=== PATIENT | female | born 1975 | race Caucasian/White ===

== ENCOUNTER 2020-01-02 03:14 | Observation (INO) | payer MEDICAID, SELFPAY ==
[2020-01-02] VITALS (14 sets, daily range): BP systolic 105–149; BP diastolic 74–83; PULSE 69–86; RESP 12–20; TEMP 36.8–37.3; O2SAT 94–98; BMI 28.5
--- NOTE | 2020-01-02 03:21 | ED_ITS ---
HPI - Chest Pain General: Stated Complaint: direct admit/cp Time Seen by Provider: 01/02/20 03:20 Source: patient and EMS Mode of arrival: EMS Limitations: no limitations History of Present Illness: HPI narrative: 44-year-old female who is transferred here from [facility] for chest pain. She had an elevated troponin there was a accepted as a direct admit. Patient come to the ER to be cleared for coronavirus. She has no cough or fever. Patient's pain-free currently. States the pain started yesterday at 2 PM. MD complaint: chest pain Associated symptoms: Deny abdominal pain, dyspnea, fever(s), nausea or vomiting Review of Systems Const: Denies: fever(s), chills, body aches or change in appetite Eyes: Denies: blurry vision or eye discomfort ENMT: Denies: throat pain or dental pain Card: Reports: chest pain Resp: Denies: dyspnea GI: Denies: abdominal pain, nausea, vomiting or diarrhea : Denies: dysuria Musc: Denies: neck pain or back pain Skin/Breast: Denies: rash Neuro: Denies: headache(s) Psych: Denies: depression Adrian/Lymph: Denies: easy bruising All/Imm: Denies: urticaria Physical Exam Const: COMMON NORMALS: no acute distress, patient oriented x3 and healthy appearing HENMT: COMMON NORMALS: normocephalic and atraumatic HEAD & SCALP: normocephalic and atraumatic Eye: COMMON NORMALS: Equal, round and reactive pupils present and EOMs intact bilaterally PUPIL: Yes Equal, round and reactive pupils present Neck/C-Spine: COMMON NORMALS: full ROM and supple Chest: COMMONS NORMALS: normal inspection of the chest and normal palpation of entire chest wall Resp: COMMON NORMALS: normal respiratory effort, No retractions, No use of accessory muscles and clear to auscultation bilaterally AUSCULTATION: clear to auscultation bilaterally Cardio: COMMON NORMALS: regular rate, regular rhythm and No murmurs present (Cardio) RATE: regular rate RHYTHM: regular rhythm GI: COMMON NORMALS: Normal to inspection, nondistended, normoactive bowel sounds present, Soft to palpation, non-tender and no masses PALPATION: Yes Soft to palpation Extremity: COMMON NORMALS: normal to inspection and full ROM Neuro: COMMON NORMALS: patient oriented x3, moves all extremities and no focal motor deficits Psych: COMMON NORMALS: mental status grossly normal, Normal thought process present and cooperative THOUGHT PROCESS: Normal thought process present Skin: COMMON NORMALS: no rashes or lesions noted and no wounds GENERAL SKIN EXAM: no rashes or lesions noted MDM - Chest Pain MDM Narrative: Medical decision making narrative: Patient presents with chest pain was transferred from [facility] to be direct admitted. Patient comes to the ER to be cleared for coronavirus she has no symptoms. Patient chest pain- free and I spoke to hospitalist and will admit. Discharge Plan Discharge Patient Disposition: Admitted As Inpatient Clinical Impression: Chest pain Condition: Stable Coding Level of Care Code ED Stockroom Clerk for Jimi Young
--- NOTE | 2020-01-02 03:38 | ECG_ITS ---
[facility] ED Test Date: 2020-01-02 Pat Name: Flavia Basurto Department: Room: 101 Gender: Female Tongue Presser: IVANIA FUNEZ: 1975 Requested By: Belkis Plascencia Order Number: [id number] Reading MD: Onur Alonso M.D. Measurements Intervals Rena Lara Rate: 72 P: 39 AL: 188 QRS: 77 QRSD: 90 T: 57 QT: 404 QTc: 443 Interpretive Statements SINUS RHYTHM MODERATE T-WAVE ABNORMALITY, CONSIDER ANTERIOR ISCHEMIA [-0.1+ mV T WAVE IN V3/V4] No previous ECG available for comparison Electronically Signed On 01-02-2020 23:39:12 CDT by Onur Alonso M.D. [id number]
--- NOTE | 2020-01-02 03:41 | PM.HP ---
Providers/Chief Complaint Admitting Physician: Belkis Plascencia MD Chief Complaint: direct admit/cp History of Present Illness Flavia Basurto is a 44 year old female who got transferred from [facility] for evaluation of chest pain. Patient is stating she does marijuana on a regular basis, and on Wednesday used IV cocaine when she was at her friend's home with her . On Wednesday when she was outside walking with her started experiencing extreme lethargy and fatigue after 4 blocks. She immediately went home, at home she started noticing pressure-like sensation in her back and chest area, she felt extremely lethargic, short of breath, started experiencing emesis. She has had multiple episodes of emesis which changed her voice tonality, she did not notice any fever, palpitations, syncope. Her chest pain persisted until she was evaluated at [facility] where she received sublingual nitroglycerin which seemed to relieve her symptoms. She was transferred to our facility for further evaluation, at the time of my evaluation she is chest pain-free and was able to give above-mentioned details. She has normal hemodynamics. She follows up with her primary care physician for type 2 diabetes and [facility] for her Percocet. Diagnostics at the other facility revealed initial blood pressure was soft low 90s, she was given normal saline which improved her blood pressure, EKG did not reveal ischemic or infarctive changes however troponin change from 0.012.. 0.037.. 0.047, d-dimer 298 ng/mL, ESR 16, CRP 13.9, TSH 1.5 Urinalysis color yellow pH 7.0 Ketones negative Glucose 2+ Protein negative Leukocytes negative Nitrite negative, WBC 3-5 RBC 6-10 Scant bacteria Few squamous cell Lipase 57 Blood chemistry Glucose 326 BUN 9 Creatinine 0.6 Sodium 136 Potassium 4.2 Chloride 95 CO2 28 AST 24 ALT 22 Calcium 9.8 White count 1980% neutrophils Hemoglobin 13.9 Platelet 367 Drug screen positive for cocaine, THC, opioids She received Toradol 30 mg IV, ceftriaxone [address] chest scan revealed bilateral diffuse bronchitis with mediastinal adenopathy Chest x-ray did not reveal pneumonia Review of Systems Const: Reports: body aches, change in appetite, fatigue and malaise; Denies: fever(s) or chills Eyes: Denies: change in vision ENMT: Denies: throat pain Card: Reports: chest pain and dyspnea on exertion; Denies: palpitations, irregular heart rhythm, swelling of feet/ankles, syncope, pre-syncope or orthopnea Resp: Reports: dyspnea; Denies: productive cough or non-productive cough GI: Reports: nausea and vomiting; Denies: abdominal pain : Denies: flank pain Musc: Denies: neck pain Skin/Breast: Denies: rash Neuro: Reports: headache(s) Psych: Reports: anxiety and depression Endo: Denies: polyuria Adrian/Lymph: Denies: easy bruising All/Imm: Denies: urticaria Medications/Allergies Home Medications Medication Instructions Recorded Confirmed Last Taken Type amitriptyline 150 mg PO BEDTIME 01/02/20 01/02/20 12/31/19 22:00 History atorvastatin 10 mg PO BEDTIME 01/02/20 01/02/20 12/31/19 22:00 History baclofen 10 mg PO TID 01/02/20 01/02/20 12/31/19 22:00 History cyclobenzaprine 5 mg PO DAILY 01/02/20 01/02/20 12/31/19 08:00 History exenatide microspheres [Bydureon] 2 mg SUBCUT Q7D 01/02/20 01/02/20 12/27/19 08:00 History insulin aspart U-100 [Novolog 0 - 20 unit SUBCUT TID 01/02/20 01/02/20 12/31/19 17:00 History U-100 Insulin aspart] 18 units insulin glargine [Lantus U-100 80 unit SUBCUT DAILY 01/02/20 01/02/20 12/31/19 08:00 History Insulin] meloxicam [Mobic] 7.5 mg PO DAILY 01/02/20 01/02/20 12/31/19 08:00 History metformin 1,000 mg PO BID 01/02/20 01/02/20 12/31/19 17:00 History oxycodone-acetaminophen [Percocet] 1 tab PO QID PRN 01/02/20 01/02/20 01/01/20 22:00 History trazodone 150 mg PO BEDTIME 01/02/20 01/02/20 12/31/19 22:00 History Allergies Allergy/AdvReac Type Severity Reaction Status Date / Time No Known Allergies Allergy Verified 01/02/20 03:20 PFSH Acute PFSH: Medical History Bipolar 1 disorder Diabetes IVDU (intravenous drug user) Polysubstance abuse Tetrahydrocannabinol (THC) dependence Surgical History S/P cholecystectomy Family History Other Hypertension Denies family history of CAD (coronary artery disease) Family history of premature coronary artery disease Social History (Updated 01/02/20 @ 04:59 by Belkis Plascencia MD) Smoking and tobacco status: heavy tobacco smoker cigarettes [ Other cigarette details: 1 pack/day for last 30 years ] Alcohol intake: never Substance/Drug Use: current Substance/Drug use type: Marijuana and Crack/Cocaine Household members: spouse Housing: House Vitals/I&O/Wt Last Vital Signs Temp 98.8 F 01/02/20 03:37 Pulse 86 01/02/20 03:37 Resp 16 01/02/20 03:37 BP 136/80 01/02/20 03:37 Pulse Ox 98 01/02/20 03:37 Weight last 48 hrs Weight 85.275 kg Physical Exam Narrative: EXAM NARRATIVE: Head to toe examination Patient is lying comfortably in her bed without any active discomfort She is chest pain-free EOMI, PERRLA Poor dentition Multiple skin tattoos Facial skin flushed S1, S2, grade 2/6 systolic murmur right second intercostal space No sign of heart failure Abdomen soft nontender nondistended Neurologically nonfocal exam Skin does not show any sign ischemia gangrene ulcer Appropriate mood and affect He is wearing nail georgian, no radial radial delay Data Other Labs: Home medications NovoLog sliding scale Metformin 1 g twice daily BiPurin weekly shot Zoloft 100 mg twice daily Trileptal 600 mg twice daily Zyrtec 10 mg daily Lipitor 10 mg daily Amitriptyline 50 mg at night Trazodone 150 mg at night Mobic 7.5 mg in the a.m. Flexeril 5 mg 3 times daily Percocet 10/325 daily Baclofen 10 mg twice daily A&P Assessment and plan (1) Unstable angina: Status: Acute (2) Polysubstance abuse: Status: Acute (3) Hoarseness of voice: Status: Acute (4) Bronchitis: Status: Acute Additional A&P Information Unstable angina Multiple risk factors for coronary artery disease such as diabetes, age, smoker, polysubstance abuse, dyslipidemia Currently chest pain-free, I would obtain CTA chest and abdomen to rule out aortic dissection, however no radio radial delay noticed, work-up is positive for CRP and ESR which is very nonspecific, I did not hear any loud murmur, she is afebrile, low risk for endocarditis Her chest pain responded well to nitroglycerin dosage, EKG does not show ischemic or infarctive changes, I am not sure about the value of troponin done at [facility], would repeat fifth generation troponin series with EKG No contraindication for exercise stress test We will get Cardiolite stress test N.p.o. Echocardiography to rule out wall motion abnormality and screen for valvular vegetation, I would not give her any antibiotics for now she has received ceftriaxone at [facility]. Polysubstance Drug screen positive for cocaine methamphetamine and opioid Would use Ativan for PRN basis for agitation, may be a calcium maria del carmen if she starts having another episode of chest Hoarseness of voice CT chest done at [facility] consistent with bronchitis TSH normal, patient is attributing to change of voice to multiple episode of emesis Would use azithromycin for bronchitis Type 2 diabetes Moderate sliding scale, start consistent carb diet after stress test, continue long-acting insulin Bipolar I would hold amitriptyline Full code N.p.o. DVT prophylaxis Attestations Medical Necessity Statement*: Anticipating discharge from the hospital less than 48 hours currently need Cardiolite stress test to rule out coronary ischemia to be the cause of her chest pain Time Spent in Patient Care: (>than 50% of time spent in counselling and/or direct pt care on unit). 60mins Coding Level of Care Code Acute Rn Child for Jimi Fwdayday Diagnoses Unstable angina I20.0 Polysubstance abuse F19.10 Hoarseness of voice R49.0 Bronchitis J40
--- NOTE | 2020-01-02 04:16 | PC.NURSE ---
LOVENOX WASN'T GIVEN BECAUSE ED NURSE SAID THAT IT WAS GIVEN. THE MAR DOES NOT REFLECT THAT IT HAS BEEN GIVEN.
--- NOTE | 2020-01-02 04:33 | USCV_ITS ---
Sb Flavia Age: 44 Gender: F : 1975 Exam Date: 01/02/2020 06:33 Ordering Phys: Belkis Plascencia MD Technologist: Bridgette Mcwilliams [place] [facility] [place]: CHEST PAIN BP: 140 / 83 HR: 68 Rhythm: Sinus Technical Quality: Adequate MEASUREMENTS (Male / Female) Normal Values 2D ECHO LV Diastolic Diameter PLAX 3.9 cm 4.2 - 5.9 / 3.9 - 5.3 cm LV Systolic Diameter PLAX 2.6 cm LV Chamber Size 3.7 cm IVS Diastolic Thickness 0.9 cm 0.6 - 1.0 / 0.6 - 0.9 cm IVS Systolic Thickness 1.6 cm LVPW Diastolic Thickness 1.7 cm 0.6 - 1.0 / 0.6 - 0.9 cm LVPW Systolic Thickness 2.1 cm RV Chamber Size 2.9 cm LVOT Diameter 2.0 cm LV Ejection Fraction 2D Teich 63.3 % LV Ejection Fraction MOD 2C 67.6 % LV Ejection Fraction 2C AL 68.6 % LA Diameter 4.1 cm LA Width 3.3 cm LA Height 4.1 cm RA Width 2.1 cm RA Height 3.4 cm Aorta at Sinotubular Diameter 3.2 cm M-MODE LV Diastolic Diameter MM 4.9 cm 4.2 - 5.9 / 3.9 - 5.3 cm LV Systolic Diameter MM 3.3 cm LV Ejection Fraction MM Teich 61.3 % IVS Diastolic Thickness MM 1.0 cm 0.6 - 1.0 / 0.6 - 0.9 cm IVS Systolic Thickness MM 1.0 cm LVPW Diastolic Thickness MM 0.9 cm 0.6 - 1.0 / 0.6 - 0.9 cm LVPW Systolic Thickness MM 1.4 cm Aortic Annulus Diameter 2.7 cm LA Ao Ratio MM 1.5 MV E Point Septal Separation 1.0 cm DOPPLER AV Peak Velocity 178.0 cm/s LVOT Peak Velocity 100.0 cm/s AV Area Cont Eq vti 1.7 cm squared AV Area Cont Eq pk 1.8 cm squared MV Area PHT 3.9 cm squared Mitral E to A Ratio 1.4 MV E' Velocity 19.0 cm/s Mitral E to MV E' Ratio 4.8 Mitral E to LV E' Lateral Ratio 4.7 Mitral E to LV E' Septal Ratio 4.9 TR Peak Velocity 161.0 cm/s TR Peak Gradient 10.4 mmHg TV Peak E Velocity 77.0 cm/s Right Atrial Pressure 3.0 mmHg Pulmonary Artery Systolic Pressu 13.4 mmHg PV Peak Velocity 77.0 cm/s RV Acceleration Time 0.2 s RV Ejection Time 0.4 s RV AcT/ET 0.5 FINDINGS Left Ventricle Normal left ventricular size, systolic function and wall thickness, with no regional wall motion abnormalities. Left ventricular ejection fraction is estimated at 62%. Normal diastolic function. Right Ventricle Normal right ventricular size and systolic function. Right ventricular systolic pressure 13.4 mmHg. Right Atrium Normal right atrial size. Right atrial pressure estimated at 3 mm Hg. Left Atrium Normal left atrial size. Mitral Valve Structurally normal mitral valve. No mitral valve stenosis. No mitral valve regurgitation. Aortic Valve Aortic valve not well visualized. No aortic valve stenosis. No aortic valve regurgitation. Tricuspid Valve Structurally normal tricuspid valve. Trace tricuspid valve regurgitation. Pulmonic Valve Pulmonic valve not well visualized. Trace pulmonary valve regurgitation. Pericardium No pericardial effusion. Normal-sized inferior vena cava. Aorta Normal-sized aortic root. CONCLUSIONS 1. Normal left ventricular size, systolic function and wall thickness, with no regional wall motion abnormalities. Left ventricular ejection fraction is estimated at 62%. Normal diastolic function. 2. Normal right ventricular size and systolic function. 3. Normal pulmonary artery pressure. 4. No significant valvular abnormality. 5. No prior similar studies to compare. Trisha Diaz MD (Electronically Signed) Final Date: 02 January 2020 16:40 S
--- NOTE | 2020-01-02 04:42 | PC.NURSE ---
PT WAS A DIRECT ADMIT FROM [facility] THAT CAME THROUGH THE ED. PT HAS A SINUS RHYTHM. VS WNL. PT WAS ORIENTATED TO ROOM. PT C/O BACK PAIN 5/10, BUT STATES THAT THEY DIDN'T WANT ANYTHING THAT THIS IS THE NORMAL FOR THEM. WILL CONTINUE TO MONITOR.
--- NOTE | 2020-01-02 04:49 | CTR_ITS ---
PROCEDURE INFORMATION: Exam: CT Chest With Contrast Exam date and time: 01/02/2020 5:38 AM Age: 44 years old Clinical indication: Pain; Other: Back; Prior surgery; Surgery date: 6+ months; Surgery type: Gb; Additional info: Back pain TECHNIQUE: Imaging protocol: Computed tomography of the chest with intravenous contrast. COMPARISON: No relevant prior studies available. FINDINGS: Lungs: Subtle peripheral airspace disease within the right upper lobe likely atelectasis. Lungs are otherwise well aerated. Correlate. Pleural space: Unremarkable. No pneumothorax. No pleural effusion. Heart: No pericardial effusion Small amount of fluid within the superior pericardial recess. Mediastinal space: Soft tissues of the mediastinum appear unremarkable. Pulmonary arteries: No visualized embolism as characterized to the most proximal segmental level. Consider alternative form of imaging if indicated. Aorta: Unremarkable. No aortic aneurysm. Lymph nodes: Numerous axillary lymph nodes. Nonspecific. Largest of approximately 1.7 cm on the right. Nonspecific lymph nodes in the mediastinum largest in the region of the aortic pulmonary window of approximately 15 mm. Nonspecific. Consider follow-up. Bones/joints: Unremarkable. No acute fracture. Soft tissues: Soft tissues about the thorax normal. Other findings: No dissection. thoracic inlet is unremarkable. IMPRESSION: 1. No dissection. 2. Subtle peripheral airspace disease within the right upper lobe likely atelectasis. Lungs are otherwise well aerated. Correlate. PROCEDURE INFORMATION: Exam: CT Angiography Abdomen and Pelvis With Contrast Exam date and time: 01/02/2020 5:38 AM Age: 44 years old Clinical indication: Pain; Other: Back; Prior surgery; Surgery date: 6+ months; Surgery type: Gb; Additional info: Back pain TECHNIQUE: Imaging protocol: Computed tomographic angiography of the abdomen and pelvis with intravenous contrast material. 3D rendering: MIP and/or 3D reconstructed images were created by the technologist. Radiation optimization: All CT scans at this facility use at least one of these dose optimization techniques: automated exposure control; mA and/or kV adjustment per patient size (includes targeted exams where dose is matched to clinical indication); or iterative reconstruction. Contrast material: OMNI 350; Contrast volume: 95 ml; Contrast route: INTRAVENOUS (IV); COMPARISON: No relevant prior studies available. RADIATION DOSE METRICS: Total DLP (mGy-cm): 1769.95 FINDINGS: Aorta: No aortic aneurysm. No aortic dissection. Celiac trunk and mesenteric arteries: Celiac trunk, superior mesenteric artery, renal arteries, inferior mesenteric arteries, abdominal aorta and the iliac vessels are patent. No dissection. Renal arteries: No occlusion or significant stenosis. Right iliac arteries: No occlusion or significant stenosis. Left iliac arteries: No occlusion or significant stenosis. Liver: No mass. Gallbladder and bile ducts: Prior cholecystectomy. Pancreas: Unremarkable. No mass. No ductal dilation. Spleen: Unremarkable. No splenomegaly. Adrenals: Unremarkable. No mass. Kidneys and ureters: Unremarkable. No solid mass. No hydronephrosis. Stomach and bowel: Moderate amount stool within the large bowel. Appendix: Appendix normal. Intraperitoneal space: No free fluid within the pelvis or within the dependent portions of the peritoneum. Lymph nodes: Unremarkable. No enlarged lymph nodes. Bladder: Unremarkable. No mass. Reproductive: Unremarkable as visualized. Bones/joints: No acute fracture. No dislocation. Soft tissues: Unremarkable. Other findings: No acute intra-abdominal process. No inflammatory process. No obstruction. CT/CT angio chest abdomen IMPRESSION: No dissection. 1. No acute intra-abdominal process. No inflammatory process. No obstruction. 2. No free fluid within the pelvis or within the dependent portions of the peritoneum. 3. Appendix normal. Radiation Dose CTDIVOL = (mGy): DLP = 1769.95 (mGy-cm)
--- NOTE | 2020-01-02 04:51 | ECG_ITS ---
[facility] Test Date: 2020-01-02 Pat Name: Flavia Basurto Department: Room: 101 Gender: Female Leaf Stripper: : 1975 Requested By: Belkis Plascencia Order Number: [id number] Iman MD: Trisha Diaz M.D. Interpretive Statements NAME OF STUDY: LEXISCAN SESTAMIBI STRESS TEST INDICATION: Angina PROCEDURE: At the baseline, the blood pressure was 141/71 mmHg, oxygen saturation 92% with a heart rate of 71 bpm. The electrocardiogram showed normal sinus rhythm, normal axis. T wave inversion in anterior leads, consider anterior ischemia. The Lexiscan was infused over a period of 20 seconds. A total of 0.4 milligrams of Lexiscan was infused. The stress phase was continued for a total of 5 minutes. Heart rate at the end of the stress phase was 89 bpm, oxygen saturation 97% with a blood pressure 161/78 mmHg. The EKG at the peak infusion revealed no new ST-T wave changes. Sestamibi was injected 20 seconds after the Lexiscan infusion. Blood pressure at the end of the recovery phase was 167/74 mmHg, oxygen saturation 98% with a heart rate of 84 beats per minute. CONCLUSION: 1. No significant EKG changes with the LexiScan infusion. 2. No LexiScan induced chest pain or cardiac arrhythmia. 3. Normal blood pressure and heart rate response. 4. Sestamibi/sestamibi perfusion scan pending; see separate report. Electronically Signed On 01-03-2020 17:24:57 CDT by Trisha Diaz M.D. [id number]
--- NOTE | 2020-01-02 04:51 | NMCV_ITS ---
NM dwight perf SPECT r/s* [id number] Flavia Basurto Age: 44 Gender: F : 1975 Exam Date: 01/02/2020 04:51 Ordering Phys: Belkis Plascencia MD Technologist: MEENA Stapleton Exam Location: [facility] Indications: Chest pain STRESS TEST Please [facility] IMAGE PROTOCOL Rest/Stress 1 Lexiscan Day Radiopharmaceutical Dose (mCi) Administration Site Administered by Rest: Tc-99m 10.6 IV MEENA Stapleton Sestamibi Stress:Tc-99m 32.2 IV MEENA Stapleton Sestamibi Rest: 02-Jan-2020 60 Discovery 630 Stress: 02-Jan-2020 45 Discovery 630 0.4mg Lexiscan. Images obtained in supine and prone position. SPECT RESULTS Technical Quality: Good Raw Data Analysis: Breast attenuation, Subdiaphragmatic activity Image Corrections: No attenuation or motion correction applied Summed Stress Score: 1 Summed Rest Score: 0 Summed Difference Score: 1 PERFUSION FINDINGS Small size perfusion abnormality of mild severity of mid anterior and anterolateral schmidt on supine stress images with improved tracer uptake on prone stress images. This is suggestive of attenuation artifact. FUNCTIONAL RESULTS (calculated via Gated SPECT) Stress Image LV EF (%): 55 Stress EDV (mL):98 TID: 0.75 Stress ESV (mL):44 FUNCTIONAL FINDINGS: The left ventricle is normal in size. Transient Ischemia Dilatation of 0.75. There is normal left ventricular systolic function. The left ventricular ejection fraction is normal with a value of 55%. There is normal left ventricular wall thickening. Normal end diastolic and end-systolic volumes. IMPRESSIONS 1. Myocardial perfusion imaging is normal. Attenuation artifact noted on mid anterior and anterolateral schmidt. 2. Overall left ventricular systolic function is normal without regional wall motion abnormalities. 3. The left ventricular ejection fraction is normal with a value of 55%. 4. No coronary ischemia based on the study. Trisha Diaz MD (Electronically Signed) Final Date: 02 January 2020 16:34 S
--- NOTE | 2020-01-02 05:38 | ECG_ITS ---
[facility] ED Test Date: 2020-01-02 Pat Name: Flavia Basurto Department: Room: 101 Gender: Female Turbine Measurements Engineer: IVANIA FUNEZ: 1975 Requested By: Belkis Plascencia Order Number: [id number] Iman MD: Onur Alonso M.D. Measurements Intervals [place] Rate: 67 P: 38 ID: [id number] QRS: 89 QRSD: 94 T: 82 QT: 409 QTc: 432 Interpretive Statements SINUS RHYTHM NONSPECIFIC T-WAVE ABNORMALITY Compared to ECG 01/02/2020 04:24:28 Possible ischemia no longer present T-wave abnormality still present Electronically Signed On 01-03-2020 0:07:37 CDT by Onur Alonso M.D. [id number]
[2020-01-02 06:08] LABS: Basophils % 0.4 %; Eosinophils # 0.3 10^3/uL (0.0-0.8); Hemoglobin 12.8 g/dL (11.5-15.3); Lymphocytes # 3.3 10^3/uL (0.8-4.8); Lymphocytes % 29.1 %; Mean Corpuscular HGB Conc 31.2 g/dL (30.0-36.0); Mean Corpuscular Hemoglobin 28.1 pg (28.0-34.0); Mean Corpuscular Volume 90.1 fL (81-99); Mean Platelet Volume 9.3 fL (7.4-10.4); Monocytes # 0.5 10^3/uL (0.2-0.9); Monocytes % 4.5 %; Neutrophils % 62.7 %; Nucleated Red Blood Cells % 0 %; Platelet Count 326 10^3/cmm (130-400); Red Blood Count 4.55 10^6/uL (4.1-5.3); Red Cell Distribution Width 12.5 % (12.1-15.1); White Blood Count 11.2 10^3/uL (4.0-10.0)
[2020-01-02 06:16] LABS: Glucose Point of Care 175 mg/dL (70-110)
[2020-01-02 06:21] LABS: Troponin(5th) Baseline 12 ng/L (0-10)
[2020-01-02 06:29] LABS: Alanine Aminotransferase 17 U/L (0-33); Albumin Level 3.6 g/dL (3.5-5.2); Alkaline Phosphatase 74 IU/L (35-105); Aspartate Amino Transferase 15 U/L (0-32); Blood Urea Nitrogen 11 mg/dL (6-20); Carbon Dioxide 28 mmol/L (22-29); Chloride 99 mmol/L (98-107); Globulin 2.3 g/dL (1.3-4.6); Glomerular Filtration Rate 108.6 mL/min (90-130); Glucose 181 mg/dL (65-115); NT Pro B Type Natriuretic Pept 303 pg/mL (0-125); Osmolality Calculated 283 mOsm/kg (285-295); Sodium 136 mmol/L (136-145); Total Bilirubin 0.4 mg/dL (0.15-1.2); Total Protein 5.9 g/dL (6.6-8.7)
[2020-01-02 06:51] LABS: HCG, Serum Qual Negative (Negative)
--- NOTE | 2020-01-02 06:55 | PC.NURSE ---
PT HAS NO C/O PAIN AT THIS TIME. PT STATES THAT THEY ARE READY TO SLEEP THAT THEY HAVE BEEN TO CT AND LAB HAS BEEN IN AND NURSES. PT STATES THAT THEY FEEL THEY ARE REALLY BEING TAKEN CARE OF HERE. REPORT GIVEN TO ON COMING NURSE.
[2020-01-02 07:53] LABS: Troponin 5 2HR 10.21 ng/L (0-10)
--- NOTE | 2020-01-02 07:55 | PC.NURSE ---
Initial Rounding Pt is laying on her left side lateral position. She let me do nsg assessment then pt stated, she wants to sleep. I discuss to her about the plan today and if she understood regarding her NPO status and cardiac stress test orders. pt verbalizes understanding.
[2020-01-02 08:08] LABS: Troponin 5 2HR Delta -1.79 ABS# (0-10)
--- NOTE | 2020-01-02 08:09 | SUR.PREOP ---
HCG HCG FOR STRESS TESTING NEGATIVE. NM notified to proceed with test.
[2020-01-02] MEDS: baclofen 10 mg Tablet PO ×3 (09:26→21:49)
[2020-01-02 12:00] LABS: Glucose Point of Care 223 mg/dL (70-110)
[2020-01-02 12:40] LABS: Troponin 5 6HR 8.32 ng/L (0-10); Troponin 5 6HR Delta -3.68 ng/L (0-12)
--- NOTE | 2020-01-02 12:47 | PC.NURSE ---
off unit for stress test
--- NOTE | 2020-01-02 12:50 | PC.CHAP ---
Pastoral Care Encounter/Spiritual Assessment Type of Contact [x] Declined ice rink attendant visit [] Patient/Family/Request visit [] Outpatient visit [] Follow-up visit [] Physician referral [] Code/Alert [] Routine visit [] Staff referral [] Actively dying [] Patient sleeping [] Family support [] [] Out of room [] Palliative care [] [] Receiving care in room [] Pre-surgical visit [] Trauma [] Long length of stay [] ICU visit [] Other: Relational/Emotional Strength [] Patient feels connected with others/family/visitors/staff [] Distress [] Loneliness/isolation [] Abandonment Spirituality of Patient [] Person of [place] [] Attends Faith of their [place] [] Believes in Prayer [] Reads Bible or Jewish materials [] There are Spiritual issues to be addressed Manager Reading Interventions [] Prayer [] Active listening [] Non-anxious presence [] Spiritual/emotional support [] Crisis/trauma care [] Spiritual counseling [] Bereavement support [] Provided bereavement packet [] Provided Bible/devotional materials [] Provided toy/stuffed animal, coloring book to patient or family member [] Provided Communion [] Anointing/[place] [] Salvation [] Completed spiritual assessment [] Other: Impact on Illness or Injury [] Angry [] Fearful [] Anxious [] Often cries [] Exhaustion [] Unable to work [] Unable to attend druze [] Unable to walk/stand [] Unable to read [] Unable to drive [] Unable to eat/drink [] Unable to sleep [] Unable to be with family [] Patient intubated [] Other: Summary Declined ice rink attendant visit Time spent with patient 5 mins
--- NOTE | 2020-01-02 13:02 | SUR.PREOP ---
Patient reports no pain or discomfort prior to the start of the procedure.
[2020-01-02] MEDS: regadenoson 0.4 Mg/5 ml Syringe IVP (13:03)
--- NOTE | 2020-01-02 14:45 | PC.NURSE ---
Pt is back from Cardiac Stress test Dr. Potter notified for verification of pt's Lantus and Novolog. Pt was NPO all morning. Cardiac stress test is done and pt would like to eat now. She had 80 units of Lantus ordered in morning. Hold Lantus and Give scheduled novolog? Dr. vegas to hold Lantus and give novolog. pt can eat now.
[2020-01-02] MEDS: oxyCODONE-APAP 10-325 mg Tablet 1 TAB PO ×2 (14:56→21:56)
--- NOTE | 2020-01-02 15:47 | PM.PN ---
Subjective Subjective: Interval history: Chart reviewed, pending nuclear stress testing, Echo done but report pending. Resting quietly in bed, no complaints including chest pain. Medications: Reviewed: Yes Medication Review Details: Active Medications Generic Name Dose Route Start Last Admin Trade Name Freq PRN Reason Stop Dose Admin Aminophylline 25 mg 01/02/20 06:35 Aminophylline IVP 01/03/20 06:34 Q2M PRN see dose instruct ions Atorvastatin Calci um 10 mg 01/02/20 21:00 Lipitor PO BEDTIME EVANGELIST Baclofen 10 mg 01/02/20 09:00 01/02/20 14:57 Lioresal PO 10 mg TID EVANGELIST Administration Dextrose 25 ml 01/02/20 04:22 D50w IVP ONCE PRN hypoglycemia prot ocol Protocol Dextrose 50 ml 01/02/20 04:22 D50w IVP PRN PRN hypoglycemia prot ocol Protocol Enoxaparin Sodium 40 mg 01/02/20 03:45 01/02/20 04:19 Lovenox SUBCUT Not Given Q24H [facility] Glucagon 1 mg 01/02/20 04:22 Glucagen IM ONCE PRN Adult Acute Hypog lycemia Prot. Protocol Dextrose 500 mls @ 100 mls /hr 01/02/20 04:22 D5w IV ONCE PRN Adult Acute Hypog lycemia Prot Protocol Insulin Aspart 0 unit 01/02/20 08:00 01/02/20 14:55 Novolog SUBCUT 8 unit WM&BEDTIME EVANGELIST Administration Protocol Insulin Glargine 80 unit 01/02/20 09:00 01/02/20 14:49 Lantus SUBCUT Not Given DAILY [facility] Lorazepam 0.5 mg 01/02/20 03:38 Ativan IVP Q12H PRN ANXIETY Nitroglycerin 0.4 mg 01/02/20 03:38 Nitrostat SUBLINGUAL Q5M PRN CHEST PAIN Nitroglycerin 0.4 mg 01/02/20 06:35 Nitrostat SUBLINGUAL 01/03/20 06:34 Q5M PRN CHEST PAIN Ondansetron HCl 4 mg 01/02/20 06:35 Zofran IVP Q2M PRN NAUSEA Oxycodone/Acetamin ophen 1 tab 01/02/20 04:31 01/02/20 14:56 Percocet 10-325 Mg PO 1 tab Q8H PRN Administration Pain No Known Allergies Allergy (Verified 01/02/20 03:20) Vitals/I&O/Wt Last Vital Signs Temp 98.6 F 01/02/20 11:59 Pulse 73 01/02/20 13:29 Resp 20 H 01/02/20 14:56 BP 138/76 01/02/20 13:29 Pulse Ox 96 01/02/20 14:56 01/02/20 01/02/20 01/02/20 06:59 14:59 22:59 Intake Total 480 / 480 118 / 118 Balance 480 / 480 118 / 118 Weight last 48 hrs Weight 85.275 kg Physical Exam Const: COMMON NORMALS: no acute distress and patient oriented x3 GENERAL APPEARANCE: cooperative and comfortable ORIENTATION/CONSCIOUSNESS: Yes awake HENMT: COMMON NORMALS: normocephalic, atraumatic, hearing grossly normal bilaterally and moist oral mucous membranes HEAD & SCALP: normocephalic and atraumatic Eye: COMMON NORMALS: Equal, round and reactive pupils present, EOMs intact bilaterally and conjunctivae normal CONJUNCTIVA: Yes conjunctivae normal PUPIL: Yes Equal, round and reactive pupils present Neck/C-Spine: COMMON NORMALS: full ROM GENERAL: Yes normal visual inspection and Yes trachea midline Resp: COMMON NORMALS: normal respiratory effort, No retractions, No use of accessory muscles and clear to auscultation bilaterally EFFORT & INSPECTION: Yes able to speak in complete sentences, Yes symmetric chest movement and No tachypneic AUSCULTATION: clear to auscultation bilaterally Cardio: COMMON NORMALS: regular rate, regular rhythm, S1 normal heart sound present, S2 normal heart sound present and No murmurs present (Cardio) RATE: regular rate RHYTHM: regular rhythm HEART SOUNDS: S1 normal heart sound present and S2 normal heart sound present GI: COMMON NORMALS: Normal to inspection, nondistended, normoactive bowel sounds present, Soft to palpation and non-tender PALPATION: Yes Soft to palpation Extremity: COMMON NORMALS: normal to inspection, full ROM and no clubbing, cyanosis or edema; negative for no pedal edema Neuro: COMMON NORMALS: patient oriented x3, moves all extremities, no focal motor deficits, no sensory deficits noted and gait normal Psych: COMMON NORMALS: mental status grossly normal, Normal thought process present, cooperative, normal affect and speech normal SPEECH: Yes normal speech THOUGHT PROCESS: Normal thought process present Skin: COMMON NORMALS: no rashes or lesions noted, no jaundice, no petechiae and no mottling GENERAL SKIN EXAM: no rashes or lesions noted Data : 01/02/20 05:55 01/02/20 05:55 A&P Assessment and plan (1) Chest pain: -need to r/o ACS due to risk factors including DM, substance abuse, smoker, hyperlipidemia -no significant delta with serial troponins -nuclear stress testing today -Echo: EF=62%, no RWMA, trace TR, trace DC -imaging negative including CT C/A -PASTORA -continue statin Status: Acute Qualifiers: Chest pain type: unspecified Qualified Code(s): R07.9 - Chest pain, unspecified (2) Polysubstance abuse: -UDS positive for cocaine, THC, opiates -Ativan PRN Status: Chronic (3) Bipolar 1 disorder: Status: Chronic (4) Diabetes: -IDDM type II -consistent carb diet -ISS, hypoglycemia precautions, Accucheks, scheduled Lantus Status: Chronic Qualifiers: Diabetes mellitus complication status: without complication Diabetes mellitus assisted insulin use: with assisted use Diabetes mellitus type: type 2 Qualified Code(s): E11.9 - Type 2 diabetes mellitus without complications; Z79.4 - retirement (current) use of insulin (5) Dyslipidemia: -on statin Status: Chronic Additional A&P Information -cardiac consistent carb diet as tolerated -DVT ppx with Lovenox -Dispo: home -Code status: FULL code Attestations Medical Necessity Statement*: Patient requires hospitalization for continued rule out ACS workup including Echo, nuclear stress testing results. Time Spent in Patient Care: Greater than 35 minutes (>than 50% of time spent in counselling and/or direct pt care on unit). Coding Level of Care Code Acute Manager Statistical Programming for g Fwd Exam Comprehensive Diagnoses Chest pain R07.9 Chest pain type: unspecified Polysubstance abuse F19.10 Bipolar 1 disorder F31.9 Diabetes E11.9; Z79.4 Diabetes mellitus complication status: without complication Diabetes mellitus assisted insulin use: with assisted use Diabetes mellitus type: type 2 Dyslipidemia E78.5
[2020-01-02 17:02] LABS: Glucose Point of Care 218 mg/dL (70-110)
--- NOTE | 2020-01-02 19:28 | PC.NURSE ---
Patient is alert and oriented x4 and ambulatory. Patient states that she has a little bit of lower back pain. Patient was offered pain medication and stated that she wanted to wait until closer to bed time. Patient has call light within reach. Will continue to monitor.
--- NOTE | 2020-01-02 20:24 | PC.NURSE ---
Dr. Plascencia notified of patient asking for her home dose of Trazodone.
[2020-01-02 20:29] LABS: Glucose Point of Care 215 mg/dL (70-110)
[2020-01-02] MEDS: atorvastatin 40 mg Tablet 10 MG PO (21:48)
[2020-01-02] MEDS: diphenhydrAMINE 25 mg Capsule PO (21:48)
--- NOTE | 2020-01-02 22:57 | PC.NURSE ---
Patient is currently resting with eyes closed.
[2020-01-03 03:12] VITALS: BP 141/79; PULSE 67; RESP 16; TEMP 37; O2SAT 95
[2020-01-03 04:13] LABS: Chol HDL Ratio 7.69 mg/dL (0.0-4.40); Cholesterol 246 mg/dL (0-200); HDL Cholesterol 32 mg/dL (60-100); LDL Cholesterol Calculated 162 mg/dL (50-129); LDL HDL Ratio 5.06 RATIO (0.00-3.22); Triglycerides 261 mg/dL (0-150)
--- NOTE | 2020-01-03 04:19 | PC.NURSE ---
Dr. Plascencia notified of patient asking for Tylenol for leg pain.
[2020-01-03 04:24] LABS: Thyroid Stimulating Hormone 1.95 uIU/mL (0.27-4.20)
[2020-01-03 05:10] VITALS: RESP 20
[2020-01-03] MEDS: oxyCODONE-APAP 10-325 mg Tablet 1 TAB PO (05:10)
[2020-01-03] MEDS: acetaminophen 325 mg Tablet 650 MG PO (05:11)
[2020-01-03 05:29] LABS: Estmated Average Glucose 260; Hemoglobin A1C 10.7 % (4.0-6.0)
[2020-01-03 06:19] LABS: Glucose Point of Care 230 mg/dL (70-110)
[2020-01-03 07:34] VITALS: BP 126/96; PULSE 85; RESP 18; TEMP 36.7; O2SAT 96
--- NOTE | 2020-01-03 07:41 | P.DS_ITS ---
Discharge Providers Date of Admission: 01/02/20 03:21 Date of Discharge: January 03, 2020 Attending Provider at Admission: Belkis Plascencia MD Attending Provider at Discharge: Cassandra Potter MD Diagnoses at Discharge Discharge Diagnosis (1) Chest pain: Status: Acute Problem details: -need to r/o ACS due to risk factors including DM, substance abuse, smoker, hyperlipidemia -no significant delta with serial troponins -nuclear stress testing negative -Echo: EF=62%, no RWMA, trace TR, trace IA -imaging negative including CT C/A -PASTORA -continue statin at increased dose based on lipid panel Qualifiers: Chest pain type: unspecified Qualified Code(s): R07.9 - Chest pain, unspecified (2) Polysubstance abuse: Status: Chronic Problem details: -UDS positive for cocaine, THC, opiates -Ativan PRN (3) Bipolar 1 disorder: Status: Chronic (4) Diabetes: Status: Chronic Problem details: -IDDM type II; A1c-10.7 -consistent carb diet -ISS, hypoglycemia precautions, Accucheks, scheduled Lantus Qualifiers: Diabetes mellitus type: type 2 Diabetes mellitus termite control technician insulin use: with termite control technician use Diabetes mellitus complication status: without complication Qualified Code(s): E11.9 - Type 2 diabetes mellitus without complications; Z79.4 - termite control technician (current) use of insulin (5) Dyslipidemia: Status: Chronic Problem details: -on statin Reason for Visit Reason for Visit: chest pain Hospital Course Hospital Course: Patient was admitted to our facility having been transferred from [facility] where she had presented with complaints of chest pain. Due to noted risk factors including poorly controlled diabetes, substance abuse and dyslipidemia stress testing was ordered. Nuclear stress test is negative for any significant coronary ischemia and troponins were trended with no noted significant delta. Risk stratification was done including lipid panel check, TSH and A1c. A1c reflects uncontrolled diabetes and patient is already insulin- dependent. TSH is within normal limits and lipid panel confirms dyslipidemia. Atorvastatin dose has been increased for this reason. She has been chest pain- free throughout her hospital stay, hemodynamically stable, afebrile, ambulatory, tolerating oral intake without difficulty. Echo was done as well and she was noted to have an ejection fraction of 62% with normal diastolic function and no regional wall motion abnormalities. She will need to follow-up with her primary care provider within 1 week. She is counseled on need to seek medical attention immediately should she have recurrent symptoms. Patient had been started on azithromycin secondary to suspicion for bronchitis. I would not continue this as she is clinically stable, has not required oxygen, has no respiratory symptoms concerning for bronchitis at this time. Discharge Summary: -Patient to follow-up with her primary care provider within 1 week. Physical Exam Const: COMMON NORMALS: no acute distress and patient oriented x3 GENERAL APPEARANCE: cooperative and comfortable ORIENTATION/CONSCIOUSNESS: Yes awake HENMT: COMMON NORMALS: normocephalic, atraumatic, hearing grossly normal bilaterally and moist oral mucous membranes HEAD & SCALP: normocephalic and atraumatic Eye: COMMON NORMALS: Equal, round and reactive pupils present, EOMs intact bilaterally and conjunctivae normal CONJUNCTIVA: Yes conjunctivae normal PUPIL: Yes Equal, round and reactive pupils present Neck/C-Spine: COMMON NORMALS: full ROM GENERAL: Yes normal visual inspection and Yes trachea midline Resp: COMMON NORMALS: normal respiratory effort, No retractions, No use of accessory muscles and clear to auscultation bilaterally EFFORT & INSPECTION: Yes able to speak in complete sentences, Yes symmetric chest movement and No tachypneic AUSCULTATION: clear to auscultation bilaterally Cardio: COMMON NORMALS: regular rate, regular rhythm, S1 normal heart sound present, S2 normal heart sound present and No murmurs present (Cardio) RATE: regular rate RHYTHM: regular rhythm HEART SOUNDS: S1 normal heart sound present and S2 normal heart sound present GI: COMMON NORMALS: Normal to inspection, nondistended, normoactive bowel sounds present, Soft to palpation and non-tender PALPATION: Yes Soft to palpation Extremity: COMMON NORMALS: normal to inspection, full ROM and no clubbing, cyanosis or edema; negative for no pedal edema Neuro: COMMON NORMALS: patient oriented x3, moves all extremities, no focal motor deficits, no sensory deficits noted and gait normal Psych: COMMON NORMALS: mental status grossly normal, Normal thought process present, cooperative, normal affect and speech normal SPEECH: Yes normal speech THOUGHT PROCESS: Normal thought process present Skin: COMMON NORMALS: no rashes or lesions noted, no jaundice, no petechiae and no mottling GENERAL SKIN EXAM: no rashes or lesions noted Discharge Data Data Completed and Pending: Completed Studies During Hospitalization Category Date Time Status CT angio chest ab domen Stat Cat Scan 06/23/20 04:49 Completed Sestamibi Stress Test Request Routi ne Exams 01/02/20 04:51 Draft NM dwight perf SPECT r/s* [id number] Routin e Nuc Med 01/02/20 04:51 Completed CV echo complete* [id number] Routine Ultrasound 01/02/20 04:33 Completed Pending at discharge Category Date Time Status Sestamibi Stress Test Request Routi ne Exams 01/02/20 07:51 Ordered Sestamibi Stress Test Request Routi ne Exams 01/03/20 06:00 Stop Req Labs from last 24 hours 01/03/20 01/03/20 01/03/20 06:04 03:15 03:15 POC Glucose 230 Estimat Average Gl ucose 260 Hemoglobin A1c 10.7 H Troponin I 6 Hour Troponin I Hi Sens Del Troponin T 120 Min merlene Delta Troponin T Triglycerides 261 H Cholesterol 246 H LDL Cholesterol, C alc 162 H HDL Cholesterol 32 L LDL/HDL Ratio 5.06 H Cholesterol/HDL Ra poppy 7.69 H TSH 01/03/20 01/02/20 01/02/20 03:15 20:24 16:55 POC Glucose 215 218 Estimat Average Gl ucose Hemoglobin A1c Troponin I 6 Hour Troponin I Hi Sens Del Troponin T 120 Min merlene Delta Troponin T Triglycerides Cholesterol LDL Cholesterol, C alc HDL Cholesterol LDL/HDL Ratio Cholesterol/HDL Ra poppy TSH 1.95 01/02/20 01/02/20 01/02/20 12:11 11:27 07:32 POC Glucose 223 Estimat Average Gl ucose Hemoglobin A1c Troponin I 6 Hour 8.32 Troponin I Hi Sens Del -3.68 L Troponin T 120 Min merlene 10.21 H Delta Troponin T -1.79 L Triglycerides Cholesterol LDL Cholesterol, C alc HDL Cholesterol LDL/HDL Ratio Cholesterol/HDL Ra poppy TSH Vitals: Last Vital Signs Temp 98.1 F 01/03/20 07:34 Pulse 85 01/03/20 07:34 Resp 18 01/03/20 07:34 BP 126/96 01/03/20 07:34 Pulse Ox 96 01/03/20 07:34 Discharge Plan Discharge Patient Disposition: Home, Self-Care Condition: Stable Prescriptions: New atorvastatin 40 mg tablet 40 mg PO BEDTIME 30 Days Qty: 30 RF: 0 Continued metformin 500 mg Tablet 1,000 mg PO BID RF: 0 Lantus U-100 Insulin 100 unit/mL Solution 80 unit SUBCUT DAILY RF: 0 amitriptyline 150 mg Tablet 150 mg PO BEDTIME RF: 0 Mobic 7.5 mg Tablet 7.5 mg PO DAILY RF: 0 Percocet 10-325 mg Tablet 1 tab PO QID PRN (Reason: Pain) RF: 0 baclofen 10 mg Tablet 10 mg PO TID RF: 0 Novolog U-100 Insulin aspart 100 unit/mL Solution 0 - 20 unit SUBCUT TID RF: 0 trazodone 150 mg Tablet 150 mg PO BEDTIME RF: 0 cyclobenzaprine 5 mg Tablet 5 mg PO DAILY RF: 0 Bydureon 2 mg/0.65 mL Pen Injector 2 mg SUBCUT Q7D RF: 0 Discontinued atorvastatin 10 mg Tablet 10 mg PO BEDTIME RF: 0 Discharge Orders: Discharge Order (Routine); Ordered 01/03/20 Ordered By: Cassandra Potter Referrals: Mateo Swann MD [Referring] - 4-7 days (Post hospital discharge follow up. ) Discharge Diet: Cardiac and Diabetic Discharge Activity: Increase activity as tolerated Discharge Attestations Time Spent in Discharge Care*: greater than 30 min Specific Discharge Activities: Specific discharge activities: educating patient, documenting/other paperwork and evaluating patient/reviewing data Status at Discharge: Cognitive status at discharge: cognitively intact , Behavioral status at discharge: cooperative , Functional status at discharge: independent ambulation Overall status at discharge: patient is back to baseline Quality Metrics Clinical Quality Measures During this hospital stay, did patient experience: None Coding Level of Care Code Acute Controlled Area Checker for [facility] Fwd Diagnoses Chest pain R07.9 Chest pain type: unspecified Polysubstance abuse F19.10 Bipolar 1 disorder F31.9 Diabetes E11.9; Z79.4 Diabetes mellitus type: type 2 Diabetes mellitus termite control technician insulin use: with retirement use Diabetes mellitus complication status: without complication Dyslipidemia E78.5
[2020-01-03 07:54] VITALS: BP 126/96; PULSE 85; RESP 18; TEMP 36.7; O2SAT 96
[2020-01-03] MEDS: baclofen 10 mg Tablet PO (08:12)
[2020-01-03] MEDS: insulin glargine 100 units/1 mL 80 UNIT SUBCUT (08:13)
--- NOTE | 2020-01-03 09:44 | PC.CHAP ---
Pastoral Care Encounter/Spiritual Assessment Type of Contact [] Declined registered sales assistant visit [] Patient/Family/Request visit [] Outpatient visit [] Follow-up visit [] Physician referral [] Code/Alert [x] Routine visit [] Staff referral [] Actively dying [] Patient sleeping [] Family support [] [] Out of room [] Palliative care [] [] Receiving care in room [] Pre-surgical visit [] Trauma [] Long length of stay [] ICU visit [] Other: Relational/Emotional Strength [] Patient feels connected with others/family/visitors/staff [] Distress [] Loneliness/isolation [] Abandonment Spirituality of Patient [] Person of [place] [] Attends Nondenominational of their [place] [] Believes in Prayer [] Reads Bible or Protestant materials [] There are Spiritual issues to be addressed Public Speaker Interventions [x] Prayer [x] Active listening [x] Non-anxious presence [x] Spiritual/emotional support [] Crisis/trauma care [] Spiritual counseling [] Bereavement support [] Provided bereavement packet [] Provided Bible/devotional materials [] Provided toy/stuffed animal, coloring book to patient or family member [] Provided Communion [] Anointing/[place] [] Salvation [x] Completed spiritual assessment [] Other: Impact on Illness or Injury [] Angry [] Fearful [] Anxious [] Often cries [] Exhaustion [] Unable to work [] Unable to attend adventism [] Unable to walk/stand [] Unable to read [] Unable to drive [] Unable to eat/drink [] Unable to sleep [] Unable to be with family [] Patient intubated [] Other: Summary Ptient resting well, feeling stronger. Time spent with patient 10 min
--- NOTE | 2020-01-03 10:20 | PC.NURSE ---
discharge instructions explained to patient, all questions answered appropriately.
--- NOTE | 2020-01-03 15:22 | PC.RESP ---
Smoking Cessation information and a schedule of classes sent to patient.
== END 2020-01-03 10:21 | disposition home or self-care (01) ==
LOC: ER 03:28 → CSU 03:38
PROVIDERS: Admitting Provider Internal Medicine; Emergency Provider Internal Medicine; PCP Internal Medicine; Visit Provider Family Medicine
DX: I20.0 Unstable angina (principal); R49.0 Dysphonia; J40 Bronchitis, not specified as acute or chronic; R07.9 Chest pain, unspecified; F31.9 Bipolar disorder, unspecified; E11.9 Type 2 diabetes mellitus without complications; Z79.4 Long term (current) use of insulin; E78.5 Hyperlipidemia, unspecified; F12.90 Cannabis use, unspecified, uncomplicated; F15.10 Other stimulant abuse, uncomplicated; F14.10 Cocaine abuse, uncomplicated; F17.210 Nicotine dependence, cigarettes, uncomplicated; Z79.84 Long term (current) use of oral hypoglycemic drugs
CPT/HCPCS: 12345; 36415; 36416; 71275; 74175; 78452; 80053; 80061; 82962; 83036; 83880; 84443; 84484; 84703; 85025; 93005; 93017; 93306; 96372; 99281; 99285; A9500; G0378; J1815; J2785; Q9967

== ENCOUNTER 2020-06-13 13:57 | Outpatient (CLI) | payer MEDICAID, SELFPAY ==
--- NOTE | 2020-06-13 14:04 | MM_ITS ---
WS: [id number] BILATERAL DIGITAL SCREENING MAMMOGRAPHY WITH CAD CLINICAL INFORMATION: SCREENING HISTORY: Screening mammogram. No current complaints. COMPARISON: TECHNIQUE: Bilateral CC and MLO views. FINDINGS: The breasts are composed of heterogeneous fibroglandular density tissue, which can limit the detectio n of small underlying mass lesions. Nodular breast tissue bilaterally is stable. No suspicious mass, asymmetry, calcifications, or architectural distortion. No evidence of malignancy. MM/[place] [id number] IMPRESSION: BI-RADS: 2-Benign FOLLOW UP: 1 Year Follow-up Recommend return to annual screening mammography.
== END 2020-06-13 13:58 | disposition home or self-care (01) ==
LOC: RADSHAW 14:03
PROVIDERS: Visit Provider Obstetrics & Gynecology
DX: Z12.31 Encounter for screening mammogram for malignant neoplasm of breast (principal)
CPT/HCPCS: 77067